=== PATIENT | male | born 1950 | race Caucasian/White ===

== ENCOUNTER → 2024-02-14 09:17 | Outpatient (REF) | payer MEDICARE, BC, SELFPAY | LOC: RCS 09:17 | PROVIDERS: ATTENDING PHYSICIAN Internal Medicine Cardiovascular Disease; FAMILY PHYSICIAN Family Medicine | DX: I48.91 Unspecified atrial fibrillation (principal) | CPT/HCPCS: 93225; 93226 ==

== ENCOUNTER → 2024-05-01 09:51 | Outpatient (REF) | payer MEDICARE, BC, SELFPAY | LOC: RCS 09:51 | PROVIDERS: ATTENDING PHYSICIAN Internal Medicine Cardiovascular Disease; FAMILY PHYSICIAN Family Medicine | DX: I48.91 Unspecified atrial fibrillation (principal); I34.0 Nonrheumatic mitral (valve) insufficiency; I35.0 Nonrheumatic aortic (valve) stenosis | CPT/HCPCS: 93306 ==

== ENCOUNTER 2024-05-13 06:43 | Day surgery (SDC) | payer MEDICARE, BC, SELFPAY ==
[2024-05-13] VITALS (14 sets, daily range): BP systolic 140–178; BP diastolic 66–93; BMI 22.0
[2024-05-13] MEDS: NSS 1000 IV (08:25)
--- NOTE | 2024-05-13 09:39 | CONSULT.STRU ---
Consultation
-
Date/Time Consultation Requested: 05/13/2024
Date/Time Consultation Performed: 05/13/2024
Requesting Provider: Rigoberto Martins MD
Performing Provider: BRIANA Lin
Reason for Consultation: /TAVR
Patient History
Physicians
Family Physician: Herbie Rawls MD
Outpatient Health Insurance Agent: Caesar Nazario MD
Primary Health Insurance Agent: Caesar Nazario MD
History of Present Illness
Mr. Sauceda is a very pleasant 74 yom that presents with severe symptomatic aortic stenosis associated with decrease in activity. His echocardiogram from 05/01/2024 is notable for EF 60-65%, AV P/M 88/50, JUANPABLO 1.1, pk lolita 4.7, moderate AI, moderate MR,
mild TR, PAP 39. Discussed the pathophysiology and treatment options of including TAVR and SAVR. Explained the evaluation process comprising of CT scan, CT surgical consult, dental clearance, and a heart team discussion. TAVR booklet, contact
information, appointments, and prescriptions given to patient. Allowed for and answered questions at bedside.
Past Medical History
Past Medical History: Atrial Fib (C2V:2--on Eliquis), Cancer (Ampullary), Hypothyroidism, Valvular Disease (aortic stenosis, moderate MR) and Other (RLS, osteoarthritis, IBS, DJD, pneumonia)
Past Surgical History
Past Surgical History: Appendectomy, Orthopedic (partial amputation of big toe), Tonsilectomy and Other (Whipple)
Dental History
[facility]
Family History
Mother: Cause of (cancer)
Father: at Age (54) and Cause of (CAD)
Family Medical History: Early CAD and Cancer
Social History
Alcohol: None
Drug: None
Tobacco: Non-Smoker
Personal:
Living: With Spouse
Employment: Retired
Allergies
Allergy/AdvReac Type Severity Reaction Status Date / Time
amoxicillin Allergy diarrhea Verified 05/13/24 08:26
seasonal allergies Allergy nasal Uncoded 05/13/24 08:26
symptoms
Home Medications
�Medication �Instructions �Recorded �Confirmed �Type
psyllium husk 0.52 gram capsule 5 cap PO DAILY 04/19/16 05/13/24 History
(Metamucil)
vitamin B complex 1 tab PO DAILY 04/19/16 05/13/24 History
apixaban 5 mg tablet (Eliquis) 5 mg PO BID 05/13/24 05/13/24 History
atorvastatin 40 mg tablet 40 mg PO QPM 05/13/24 05/13/24 History
cetirizine 10 mg tablet (Zyrtec) 10 mg PO DAILY 05/13/24 05/13/24 History
ferrous fumarate-ascorbic 1 tab PO QNOON 05/13/24 05/13/24 History
acid-ascorbate sod 65 mg iron-125
mg tablet
gabapentin 300 mg tablet,extended 300 mg PO QHS 05/13/24 05/13/24 History
release 24 hr
levothyroxine 200 mcg tablet 200 mcg PO DAILY 05/13/24 05/13/24 History
(Synthroid)
melatonin 5 mg tablet 5 mg PO HSPRN PRN sleep 05/13/24 05/13/24 History
multivitamin 1 tab PO QPM 05/13/24 05/13/24 History
pantoprazole 40 mg tablet,delayed 40 mg PO DAILY 05/13/24 05/13/24 History
release
STS%
STS %: 1.25
Review of Systems
-
History Source: Patient
General: Reports Fatigue
HEENT: Reports No Symptoms
Respiratory: Reports SAWYER
Cardiac: Reports No Symptoms
Abdomen/GI: Reports No Symptoms
: Reports No Symptoms
Musculoskeletal: Reports No Symptoms
Skin: Reports No Symptoms
Neurological: Reports No Symptoms
Vascular: Reports No Symptoms
Physical Exam
Vital Signs
Temp 97.8 F 05/13/24 07:57
Temp route: Oral 05/13/24 07:57
Pulse 40 05/13/24 07:57
Resp Rate 16 05/13/24 07:57
Blood pressure 175/83 05/13/24 07:57
Blood pressure extremity used: Left upper arm 05/13/24 07:57
Position: Lying 05/13/24 07:57
SaO2 98 05/13/24 07:57
Oxygen Mode of Delivery Room air 05/13/24 07:57
Can the patient verbally communicate their pain? Yes 05/13/24 07:57
Actual Weight 83.9 kg 05/13/24 07:56
Body Mass Index (BMI) 22.0 05/13/24 07:56
Labs
05/10/2024
HH: 12.4/36.6
Plt: 136K
BUN/Creatinine: 12/0.73
GFR>60
Albumin 4.3
Diagnostic Studies
Echocardiogram 05/01/2024:
CONCLUSIONS
Normal biventricular size and systolic function without regional wall motion
abnormality. Estimated LVEF 60-65%.
Moderate mitral regurgitation.
Severe aortic stenosis. The peak gradient across the valve is 88 mmHg with a
mean of 50 mmHg. Using a LVOT diameter of 2.2 cm, the calculated JUANPABLO is 1.1 cm
sq. Mean gradient and visual appearance of valve are consistent with severe
stenosis.
Moderate aortic regurgitation.
Enlarged right ventricular size. Normal right ventricular systolic function.
Mildly elevated PASP.
Ectatic proxmal ascending aorta: 3.9 cm.
Cardiac Catheterization 05/13/2024:
CONCLUSIONS
1:�Systemic hypertension
2:�No significant CAD
3. Known severe aortic stenosis noninvasively evaluated
Exam
General: Well Developed, Well Nourished and No Apparent Distress
HEENT: Normocephalic
Neck: Trachea Midline
Respiratory: Clear
Cardiac: Murmur (IV/ TORSTEN)
GI: Soft and Non Tender
Rectal: Deferred by Provider
Skin: Warm
Neuro: Awake, Alert and Oriented
Psych: Calm
Assessment / Plan
-
Aortic Stenosis
Continue TAVR evaluation
Trend creatinine after contrast (Rx given)
TAVR CT scan (05/28)
CT surgical consult ([facility] 06/03)
Frailty testing and KCCQ12 at consult
Will hold Eliquis x [address] and place on aspirin while Eliquis held. Will d/c aspirin when Eliquis resumed
Dental clearance
Heart team discussion
Data Reviewed
-
EKG: Tracing Personally Visualized and interpreted (Afib)
Cardiac/Vascular Sonographer: Report Reviewed by me and Discussed with Physician
Echo: Report Reviewed by me and Discussed with Physician
Labs: Labs Reviewed by me
Old Records: Reviewed (Dr. Nazario's office visit)
Total Time Spent with Patient (in minutes): 45
--- NOTE | 2024-05-13 09:39 | ITS.CL.CATH ---
Office System Analyst - Catheterization
Cardiac Catheterization
Procedure Report:
CARDIAC CATHETERIZATION REPORT
Date of Procedure: 05/13/2024
Referring: Caesar Nazario MD
Indication: Symptomatic severe aortic stenosis
�
HEMODYNAMIC DATA
AO: 162/68
LV: Not done
�
LEFT VENTRICULOGRAPHY: Not done
�
CORONARY ANGIOGRAPHY
Dominance: Right
Left Main: Normal
LAD: Trivial luminal irregularities in a mildly calcified vessel
Circumflex: Mild luminal irregularities
RCA: Dominant moderately calcified vessel with mild luminal irregularities
�
Closure Device: None-the procedure was performed via the right radial artery. The Fabiano's test was normal prior to the procedure.
�
Radiation (mGy): 232
DAP (cm2.Gy): 26.2
Fluoroscopy time: 3.5 minutes
�
CONCLUSIONS
1:�Systemic hypertension
2:�No significant CAD
3. Known severe aortic stenosis noninvasively evaluated
�
�
Copy to: Caesar Nazario MD, Quintero MD
�
Rigoberto Martins MD, [facility], [facility]
== END 2024-05-13 12:30 | disposition home or self-care (01) ==
LOC: CATH 06:43
PROVIDERS: ATTENDING PHYSICIAN Internal Medicine Cardiovascular Disease; FAMILY PHYSICIAN Family Medicine; OTHER PHYSICIAN Internal Medicine Cardiovascular Disease
DX: I08.0 Rheumatic disorders of both mitral and aortic valves (principal); I25.10 Atherosclerotic heart disease of native coronary artery without angina pectoris; I25.84 Coronary atherosclerosis due to calcified coronary lesion; I10 Essential (primary) hypertension; E03.9 Hypothyroidism, unspecified; Z90.49 Acquired absence of other specified parts of digestive tract; G25.81 Restless legs syndrome; K58.9 Irritable bowel syndrome, unspecified; I48.91 Unspecified atrial fibrillation; M19.90 Unspecified osteoarthritis, unspecified site; Z87.01 Personal history of pneumonia (recurrent); Z82.49 Family history of ischemic heart disease and other diseases of the circulatory system; Z79.01 Long term (current) use of anticoagulants; Z79.899 Other long term (current) drug therapy; Z79.890 Hormone replacement therapy
CPT/HCPCS: 93454; C1894; Q9967

== ENCOUNTER → 2024-05-28 09:05 | Outpatient (REF) | payer MEDICARE, BC, SELFPAY | LOC: RAD 09:05 | PROVIDERS: ATTENDING PHYSICIAN Nurse Practitioner Acute Care; FAMILY PHYSICIAN Family Medicine; OTHER PHYSICIAN Specialist | DX: I35.0 Nonrheumatic aortic (valve) stenosis (principal) | CPT/HCPCS: 74174; 75572; Q9967 ==

== ENCOUNTER → 2024-06-10 06:50 | Day surgery (SDC) | payer MEDICARE, BC, SELFPAY | LOC: CATH 06:50 | PROVIDERS: ATTENDING PHYSICIAN Internal Medicine Cardiovascular Disease; FAMILY PHYSICIAN Family Medicine; OTHER PHYSICIAN Internal Medicine Cardiovascular Disease | DX: I08.3 Combined rheumatic disorders of mitral, aortic and tricuspid valves (principal); I48.21 Permanent atrial fibrillation; Z79.01 Long term (current) use of anticoagulants; E78.2 Mixed hyperlipidemia; E03.9 Hypothyroidism, unspecified | CPT/HCPCS: 93312; 93320; 93325 ==

== ENCOUNTER 2024-06-26 05:29 | Inpatient (IN) | payer MEDICARE, BC, SELFPAY ==
[2024-06-18 08:49] VITALS: BMI 23.2
[2024-06-18 09:27] LABS: % Basophils 0.6 % (0-2); % Eosinophils 2.2 % (0-6); % Immature Granulocytes 0.2 % (0-0.5); % Lymphocytes 37.3 % (20.5-51.1); % Monocytes 10.6 % (1.7-9.3); % Neutrophils 49.1 % (42.2-75.2); Absolute Eosinophils 0.1 10^3/uL (0-0.7); Absolute Lymphocytes 1.9 10^3/uL (1.2-3.4); Absolute Monocytes 0.5 10^3/uL (0.1-0.6); Absolute Neutrophils 2.5 10^3/uL (1.4-6.5); Hematocrit 36.6 % (39.0-52.0); Hemoglobin 12.4 g/dL (13.0-18.0); Mean Corp Hgb Conc. 33.9 g/dL (33.0-37.0); Mean Corpuscular Hgb 31.7 pg (27.0-31.0); Mean Corpuscular Volume 93.6 fL (80.0-94.0); Mean Platelet Volume 10.8 fL (7.4-10.4); Nucleated Red Blood Cells % 0 % (-); Platelet Count 115 10^3/uL (130-400); Red Blood Cell Count 3.91 10^6/uL (4.70-6.10)
[2024-06-18 09:36] LABS: INR 1.37
[2024-06-18 09:37] LABS: APTT 34.4 Sec (23.4-35.0)
[2024-06-18 09:40] LABS: Urine Albumin Negative (Neg - Trace); Urine Bilirubin Negative (Negative); Urine Character Clear (Clear); Urine Color Yellow; Urine Glucose Negative (Negative); Urine Ketone Negative (Negative); Urine Leukocyte Negative (Negative); Urine Nitrite Negative (Negative); Urine Occult Blood Negative (Negative); Urine Urobilinogen Negative (Neg - 1+)
[2024-06-18 10:03] LABS: NT-proBNP 1880 pg/ml
[2024-06-18 10:28] LABS: ALT (SGPT) 37 U/L (0-50); AST (SGOT) 42 U/L (17-59); Alkaline Phosphatase 89 U/L (38-126); Blood Urea Nitrogen 16 mg/dl (9-20); Calcium 9.4 mg/dl (8.4-10.2); Carbon Dioxide 28 mmol/L (22-30); Chloride 103 mmol/L (98-107); Direct Bilirubin 0.2 mg/dl (0.0-0.4); Estimated Creatinine Clearance 112 ml/min; Glucose 110 mg/dl (70-99); Potassium 4.3 mmol/L (3.5-5.1); Sodium 143 mmol/L (135-145); Total Bilirubin 1.6 mg/dl (0.2-1.3); eGFR > 60.00
[2024-06-18 10:43] LABS: Albumin 4.5 g/dl (3.5-5.0); Glycohemoglobin (HgbA1c) 5.9 % (4.0-5.6); Total Protein 7.3 g/dl (6.3-8.2)
--- NOTE | 2024-06-18 10:47 | CM ---
Chart reviewed. Met with the patient and his in PAT. Reviewed preoperative and postoperative instructions, along with showering guidelines. Gave patient 2 soaps. Patient is independent of ADLS, lives with his in a 2 STH, 1 ROLANDO, 0 DME.
Patient is agreeable to a home visit by CT Transitional RN. Plan is for the patient to return home with CT Transitional RN.
[2024-06-26] VITALS (35 sets, daily range): BP systolic 141–185; BP diastolic 51–96; BMI 22.8
--- NOTE | 2024-06-26 06:30 | PTCARENOTE ---
Pt rec'd as direct admit for TAVR. pt clipped and washed with chg wipes. 20g placed in RFA, ABO sent. Adm hx taken and recorded. spouse at bedside. Pt seen by Dr Ramsey at bedside
--- NOTE | 2024-06-26 06:32 | W.CVOR.SURPR ---
CVOR Surgeon Immed Pre Op
-
I have examined this patient prior to performance of the scheduled procedure.
The patient's condition is unchanged from the time of the dictated/written History and
Physical and the patient is able to undergo the scheduled procedure.
TF TAVR
Full Rescue
[2024-06-26] MEDS: ANCEF 10 IV (07:08)
[2024-06-26 08:00] LABS: ACT-LR - POC 289 Seconds (116-155)
[2024-06-26 08:17] LABS: ACT-LR - POC 292 Seconds (116-155)
--- NOTE | 2024-06-26 08:30 | W.PN.UPDATE ---
Update Note
Progress Note Update
Reviewed Mr. Sauceda with the heart team in the preTAVR SDM meeting and confirmed a 29 mm S3 via (R) TF access. Patient will resume Eliquis and d/c aspirin once Eliquis restarted post TAVR. LVEDP 20mmHg. # 29 mm S3 (serial# [id number]) successfully
deployed via right transfemoral access. Post implant MG 4mmHg.
--- NOTE | 2024-06-26 08:36 | ITS.CL.TAVR ---
Retoucher Photoengraving - TAVR Report
TAVR PRocedure
Procedure Report:
TRANSCATHETER AORTIC VALVE REPLACEMENT REPORT
Date: 06/26/2024
Referring physician: Caesar Nazario M.D.
Preop diagnosis: Severe aortic valve stenosis.
Postop diagnosis: Severe aortic valve stenosis.
Procedure: Transcatheter aortic valve replacement (TAVR) using a # 29 Damon BRYANT S3 Ultra.
Operators: Cholo Sutton DO, Anthony Tran, M.D.
Findings: Severely calcified and stenotic aortic valve.
Anesthesia: Conscious sedation was provided by the anesthesia staff.
Estimated blood loss: Negligible.
Complications: None.
Condition: Stable
Procedure:
The patient was brought to the cardiac cathode ray tube salvage processor after consent and was prepped and draped in standard sterile fashion. Conscious sedation was provided by the anesthesia staff. After a 'Time Out,' bilateral common femoral arteries and the left
common vein were access using a modified Seldinger technique with a micropuncture kit under ultrasound guidance. A 6 Tunisian sheath was placed in the left femoral vein. Angiography performed through the micropuncture sheath confirmed satisfactory
arterial placement in the left common femoral artery. The micropuncture sheath was replaced with a 6Fr sheath in the left PRESCHOOL DISABILITY TEACHER. Angiography through the micropuncture kit confirmed satisfactory arterial placement in the right common femoral artery.
The right PRESCHOOL DISABILITY TEACHER was dilated with an 8FR dilator and preclosed with two Perc-Close devices. An 8Fr sheath was placed in the RCFA. A temporary pacing wire was advanced through the left femoral vein and into the right ventricle. The pacemaker
demonstrated good capture and was set to back up. A 5Fr pigtail catheter was advanced through the left femoral sheath and seated in the right coronary cusp. Angiography confirmed co-planar angles.
An AL-1 catheter was advanced through the 8Fr sheath, the J wire was exchanged for an Amplatz Superstiff wire and the catheter and the 8 Fr sheath was removed. The 16 Fr Damon E-sheath was inserted over the wire and into the descending aorta.
Heparin 7000 units was given. The BRYANT S3 was prepared on the back table. Orientation was confirmed by both physicians. The AL-1 catheter was re-advanced through the E-sheath to the level of the ascending aorta. The Superstiff wire was removed
and a soft tip straight wire was advanced through the AL-1. The straight tip wire was used to cross the aortic valve and the catheter was advanced into the left ventricle. The straight wire was removed and an Amplatz Extrastiff wire with curved
proximal end was advanced through the catheter and into the left ventricle. The wire was seated in the apex and the catheter was removed. ACT was checked and confirmed to be > 250 seconds.
The valve was advanced over the Extrastiff wire and into the descending aorta. The balloon was withdrawn and the valve was mounted on the balloon. The valve was advanced over the aortic arch and into the aortic valve annulus. The pusher device
was withdrawn to allow for balloon expansion. Low volume aortography confirmed good position of the valve. The valve was deployed during rapid ventricular pacing. Echocardiography and aortography confirmed a good result with trace aortic valve
insufficiency and a 4 mmHg mean gradient. The valve deployment system was removed. The Damon E sheath was then removed and hemostasis obtained with the two Perc-Close sutures. Final angiography demonstrated no evidence of ileofemoral
dissection/perforation and good runoff below the common femoral artery. The pacemaker and the pigtail catheter were removed. The left femoral artery sheath was removed using a 6 Tunisian Angio-Seal. The left femoral venous sheath was removed and
manual pressure was applied with excellent hemostasis.
Radiation
Dose (mGy): 314.43
DAP (cm2.Gy): 33.6095
Fluoroscopy time (minutes): 7.9
TAVR Echo Gradient (mmHg): 4
LV (s/x, mmHg): 157/21
TAVR Cath Gradient (mmHg): Not obtained.
Conclusions:
1. Successful placement of #29 Bryant S3 Ultra aortic valve via right transfemoral approach with no acute complications.
2. Atrial fibrillation with underlying bradycardia (not on rate control), unchanged after TAVR placement. The patient did have several paced beats. The decision was made to maintain temporary pacemaker position while the patient is recovering so
that we can better assess for permanent pacemaker needs.
Cholo Sutton, DO, FACC, FACP
Copy to: Caesar Nazario M.D., Herbie Rawls M.D.
--- NOTE | 2024-06-26 09:00 | W.PN.CT.SURG ---
CT Surgery Operative Note
-
OPERATIVE REPORT
Preoperative Diagnosis: Severe aortic valve stenosis, symptomatic
Postoperative Diagnosis: Same
Procedure(s) Performed: Right trans femoral TAVR with a 29 mm Damon TAVR valve
Date of Procedure: 06/26/2024
Comorbidities:
1. Severe aortic stenosis, symptomatic
2. At least moderate mitral valve insufficiency, functional
3. History of pancreatic cancer status post Whipple procedure
4. Hypothyroidism
5. Poly neuropathy
6. Osteoarthritis
Cardiac Surgeon: Gerardo Ramsey MD, MS
Pockets And Pieces Necktie Operator: Cholo Sutton MD
Anesthesia: Conscious Sedation and Local Analgesia
EBL: 50cc
Products: none
Implant: 29 mm Damon CYRUS ultra valve, nominal pressure, SN: [id number]
Indication(s) for Procedures: 74-year-old male with symptomatic severe aortic stenosis. CT-TAVR protocol revealed acceptable anatomy for TAVR access and implantation. Multidisciplinary discussion between interventional cardiology, and general
cardiology with overall consensus to pursue transcatheter aortic valve intervention. He will also likely need to have serial echo monitoring for his mitral valve insufficiency which could be functional in origin. This to be evaluated later for
possible Janell.
Start time: 0734hrs
Deployment time: 802hrs
End time: 0821hrs
Radiation Dose (mGy): 314.43
DAP (cm2.Gy): 33.6095
Fluoroscopy time (minutes): 7.9
Contrast volume (ml): 86
TAVR gradient (mmHg): 4mmHg
Heparin Dose: 7000units
Protamine Dose: 30mg
Final Valve Positionin/10
Findings: Preoperative LVEF was 60% and was 60% following TAVR without inotropic support. Function was overall normal without regional wall motion abnormalities or dyskinesia. The aortic valve was well seated only trace detectable PVL and mean
gradient across the new valve was 4 mmHg. he started off with a sinus bradycardic rhythm with known atrial fibrillation. After the TAVR procedure, he regained a slow junctional/intermittent sinus bradycardic rhythm. The temporary pacing wire was
left in place in the event that he would require additional pacing and possibly a pacemaker as he was high risk. There was successful placement of 29 mm nominal TAVR valve without acute complications.
Access:
1. Device -right common femoral artery, perclose x 2
2. Pigtail -left common femoral artery [+ 6Fr angioseal]
3. Transvenous Pacer -left common femoral vein
Description of Procedure: The patient was taken to the labor conciliator. Their identity and procedure to be performed were verified and they were positioned supine on the labor conciliator table. Induction via conscious sedation. The patient was then prepped and
draped from chin to thigh in a sterile fashion. A preoperative time-out was performed with all members of the team present. Arterial and venous access was performed using fluoroscopy and ultrasound guidance with micropuncture and Seldinger
technique. Two perclose devices were used on the device side followed by access to the aorta with a stiff wire to facilitate E-sheath placement. Heparin was given. A stiff straight wire and AL-1 catheter was used to cross the aortic valve. An LVEDP
was measured here and found to be 20 mmHg. The stiff wire was exchanged for an extra stiff coiled tip wire. The valve was prepped and mounted on to the device carrier. An ACT of >250 was achieved. We verified x 3 that the valve was mounted in the
correct orientation with the skirt of the valve directed toward the tip of the device carrier. We advanced the device into the descending thoracic aorta where the valve was them mounted onto the balloon under fluoroscopy. The device was flexed and
advanced over the arch into the root and positioned across the aortic valve. Contrast fluoroscopy was used to visualize the prosthesis across the valve and to guide positioning. A pigtail catheter in the RCC as used as a guide. We aimed to have the
bottom of the device marker at the annular hinge point. The device sheath was pulled back. We performed a quick pre-deployment time out. The pacer was turned on and had capture. Blood pressure fell accordingly, angiography was done to verify the
intended final placement and the valve was deployed with 5 seconds of rapid pacing to nominal volume. The balloon was deflated and the pacer was turned off. We had recovery of vitals. The device carrier was unflexed and positioned back in the
descending thoracic aorta. A transthoracic echocardiogram was performed. The device was removed from the E-Sheath maintaining wire access followed by removal of the E-sheath as we cinched down the perclose devices. There was acceptable hemostasis.
The pigtail was withdrawn into the descending/abdominal and completion aortogram with runoff run-off angiography was performed. There was no stenosis or dissection of bilateral iliofemoral systems. There was acceptable hemostasis of bilateral groins
and manual pressure was held following wire removal. Low dose protamine was administered after checking another ACT.
All instrument, sponge, and needle counts were confirmed to be correct x 2 at the end of the operation. The patient was transferred to the cardiac intensive care unit in stable condition.
I, Dr. Gerardo Ramsey, was present, scrubbed for, and performed all critical elements of this procedure.
Gerardo Ramsey MD
Cardiothoracic Surgeon
[facility]
This operative dictation was created using the Audaster dictation system. Please excuse any grammatical, typographical, or 'sound alike' errors
--- NOTE | 2024-06-26 10:00 | PTCARENOTE ---
Patient received post operative. He is AO x3, neurologically intact. A-fib in the 30's, V-pacing. Left sheath intact in place with a transvenous pacing at at 30 BPM to KVO. Doppler pulse right pedal pulse. B/L groin are dry and soft. POX 100 on room
air, BP 159/77. Urinal emptied for 200 cc of yellow urine. HOB flat, denies pain, sleeping, at bedside
--- NOTE | 2024-06-26 11:04 | CM ---
Chart reviewed. Patient is in the OR today. Patient is independent of ADLS, lives with his in a 2 STH, 1st floor set up, 1 ROLANDO, 0 DME. Plan is for the patient to return home with CT Transitional RN. CM to follow
[2024-06-26] MEDS: SYNTHROID 200 MCG PO (11:08)
--- NOTE | 2024-06-26 11:50 | PTCARENOTE ---
oral temp 94.5, Flori chowdhury
--- NOTE | 2024-06-26 13:17 | PTCARENOTE ---
Oral temp 97.7. Flori huger turned off. Report called to the fence laborer. Patient NPO. A-Fib HR 35-40
[2024-06-26] MEDS: ANCEF 5 IV ×2 (15:45→21:15)
--- NOTE | 2024-06-26 16:47 | ITS.CL.PACE ---
[facility]er [facility] Presser - Pacemaker Implant
Pacemaker Implant
Procedure Report:
Leadless Pacemaker (Micra) Implantation:
Mr. Sauceda is a very pleasant 74 yr old gentleman with permanent atrial fibrillation and severe aortic stenosis who underwent TAVR earlier today with slow ventricular response and required pacing with temporary wire. �Patient is recommended for
pacemaker implantation.� Given patient's permanent atrial fibrillation, a single-chamber pacemaker is recommended.� We discussed and decided to proceed with leadless pacemaker with the possibility of regular pacemaker if leadless pacemaker is not
feasible.
Indications: Severe symptomatic bradycardia and intermittent AV block with permanent atrial fibrillation
Date of the Procedure:
06/25/2024
Pre-Operative Diagnosis: Severe bradycardia with intermittent AV block.
Post-Operative Diagnosis: Severe bradycardia with intermittent AV block.
Procedure Performed: Leadless pacemaker placement
Performing Physician:
Chica Hsu MD
Anesthesia:
See anesthesia records
Pre-operative antibiotics:
Ancef 2gm IV
Detailed Description of the Procedure:
Written informed consent was obtained from the patient after a full explanation of the risks and benefits of the procedure including the risks of sedation and anesthesia.
The patient was brought to the electrophysiology laboratory in stable condition in fasting state. Continuous electrocardiographic and hemodynamic monitoring was initiated.
The initial rhythm was atrial fibrillation with slow junctional escape versus slow ventricular response and temporary pacing wire in place.
The procedure site was meticulously prepared with surgical scrub and allowed to dry with no pooling. Sterile draping was applied to cover the procedure site. The image intensifier was draped with sterile bag and positioned over the patient.
After infusion of local anesthetic, vascular access was obtained under ultrasound guidance and sheaths were placed over guide wire as detailed below.
An 8Fr sheath in right femoral vein was placed and Amplatz Guidewire 0.035 was placed in the superior vena cava. The venous access was gradually dilated from 14-24 Ivorian dilators. Then the 27 Fr Micra outer sheath was successfully and carefully
advanced to the RA.
Leadless Pacemaker (Micra) implantation:
The delivery system of the Micra was prepped with removal of all air underwater and was advanced into the sheath to the RA with continuous saline irrigation. The sheath was pulled back to the IVC and the delivery sheath was advanced into the RV
cavity. The delivery system as placed against the ventricular septum using SALAS and GREENLANDIC fluoroscopic views and the septal approximation was confirmed with contrast injection. Once adequate location was confirmed, the locked sutures were unlocked and
the Micra was slowly advanced pulling back the delivery sheath releasing the anchoring hooks. The Micra was attached successfully to the RV septum. The PM was tested and patient had extremely elevated threshold with normal impedance.
Decision was made to recapture and reposition. Multiple locations in the RV septum were tested and all were noted to have high threshold. Finally a more apical inferior septum had excellent thresholds and were accepted. Adequate sensing and
threshold noted.
Next, the tug test was done with the pulling the attached suture under fluoroscopic guidance with the three anchors securely embedded and showed movement and widening of the anchors with pulling them. The PPM again was tested showing stable
thresholds and excellent sensing.
The one side of the suture was cut and the other side was gradually and carefully pulled until free. At that point, patient lost capture and was again noted to have slow escape rhythm. �The leadless pacemaker was emerged and was noted to have
dislodged with still in the RV septum anchored using one of the anchors.
Decision was made to snare and remove the leadless pacemaker.
Extraction of the leadless Pacemaker:
An Agilis sheath was placed in the right femoral vein over the guidewire and the 27 Ivorian micra sheath. A gooseneck snare was placed in the right atrium. Using the Agilis sheath the snare was placed in the RV and the leadless pacemaker was
captured. The pacemaker was captured and retrieved from the septum.� Both the snare and the leadless pacemaker was pulled out of the RV and into the Micra sheath.
Both the Agilis sheath and the 27 Ivorian micro sheath was pulled out from the right femoral vein.
Manual pressure was applied and [id number] suture was placed around the entrance of 27 Ivorian sheath.
Case was discussed again with the patient family and decision was made to proceed with left bundle branch pacing pacemaker.
Left Bundle Branch pacing single chamber Permanent Pacemaker Placement
The left shoulder site was prepped properly for the pacemaker implantation. A timeout was performed immediately before the procedure. The left chest was prepped from the nipple to the angle of the jaw with chlorhexidine, and draped following sterile
technique in usual routine.�
The left infraclavicular region was prepped and draped in the usual sterile fashion. Local anesthesia was administered subcutaneously using 1% lidocaine / Bupivacaine. The left cephalic vein cutdown was done and guide wires were advanced to the
inferior vena cava (IVC) under flouro guidance.
A subcutaneous pocket was created with blunt dissection and use of electrocautery. Hemostasis was excellent.
Attention then was turned to the left bundle branch pacing lead. The guide wire was advanced to the RA and was advanced to the RV. The preformed curved long hemostatic peel away HIS sheath was advanced into the RV cavity. A left bundle pacing wire
was advanced into the sheath to the tip with ventricular signals noted with unipolar manner. The sheath with the pacing lead was moved deeper into the RV cavity from the HIS location on the septum at a more inferior and distal to the HIS signals.
Once adequate signals were noted on the electrograms of the pacing lead in the sheath with W pattern signals on the RV septum, the lead was advanced and clockwise turns were done under fluoroscopic guidance. The septum was engaged and the lead was
paced intermittently after every 2-3 turns. The Impedance of the lead was measured that remained stable around 1000 Ohm and the lead was advanced into the septum. The ventricular capture was monitored throughout and the captures gradually changed
from RV pacing to non-selective pacing to LBB pacing with R wave on V1.
With RBBB pattern noted on the pacing lead, it was decided to accept the location as optimal location. The long guiding sheath was cut and removed from the RV without change in lead position, impedance, sensing, or capture. The lead was sutured to
the underlying pectoralis fascia with 0-silk stitches.
Deep subcutaneous tissues were closed with 3 layers of 2-0V loc sutures; and the dermis was reopposed using a running 4-0 V-Loc subcuticular suture. Sponge counts / sharp counts were appropriate.
Procedure End:
The procedure was tolerated well. Aquacel bandaged was applied. A pressure dressing was applied.
Following the completion of the, temporary pacing wire and sheaths were removed without any movement to the permanent pacing lead. The decision was made to also place a �figure of 8� sutures. The sheaths were removed and hemostasis achieved with
manual compression.
Estimated Blood loss:
5 cc
Specimens Removed:
No cultures and no specimens were obtained. No intraoperative pathology was identified.
Urine output:
None
Packs / Drains/ Tubes:
None
Instrument / Sponge Count Correct:
Yes
Flouro time:
27.8min / 97.1 Gycm2
Complications of the Procedure:
None
Condition of Patient at Time of Transfer:
Hemodynamically stable with no neurological or vascular compromise.
Explanted Device Information:
Medtronic Leadless (Micra) pacemaker-
����������� Model #: [id number]; Serial Number: [id number] � implanted and explanted with poor thresholds.
Implanted Device information:
Generator: Medtronic; Model: [id number]; Serial # [id number]
����������� LBB pacing lead: Medtronic; Model: 3830-69; Serial # [id number]
����������������������� Measured data on the RV lead was sensing of 12 mV, impedance of 740 ohms and threshold of 1.5V at 0.4ms
(The RV threshold was 3 V @0.4ms and the LBB threshold is 1.5 V@0.4ms)
Currently pacing at 3.5V to non-selectively capture both RV and LV chambers.
Adrian parameter settings
����������� VVIR 60 bpm. �
Procedure End
Estimated Blood loss:
<5 cc
Total contrast used:
12.5 cc
Specimens Removed:
None.
Implants / Devices:
None
Urine output:
None
Packs / Drains/ Tubes:
None
Instrument / Sponge Count Correct:
Yes
Complications of the Procedure:
None
Condition of Patient at Time of Transfer:
Hemodynamically stable with no neurological or vascular compromise.
Summary:
s/p implantation of MRI compatible Medtronic leadless ventricular pacemaker with subsequent extraction and placement of conduction system pacing permanent pacemaker on the left chest.
--- NOTE | 2024-06-26 17:00 | PTCARENOTE ---
Right figure eight suture removed. Dry dressing applied.
[2024-06-26] MEDS: NON-FORMULARY ITEM 12 CAP PO (18:17)
[2024-06-26] MEDS: LIPITOR 40 MG PO (18:18)
--- NOTE | 2024-06-26 18:30 | PTCARENOTE ---
Patient received from the metallurgy laboratory technician. AO x3, oxygen at 2 liters NC. Left arm immobilizer with pressure dressing. PPM left chest wall covered with a large pressure dressing. Voided 200 cc in urinal. B/L groins a CDI. Right pedal pulse weaker than the
left but palpable now, Verified with Doppler. Portable CXR completed. Dinner ordered, at beside
[2024-06-26] MEDS: APRESOLINE 5 MG IV (19:39)
[2024-06-26] MEDS: ROXICODONE 2.5 MG PO (19:40)
[2024-06-26] MEDS: REGLAN 10 MG IV (20:06)
[2024-06-26] MEDS: NORVASC 5 MG PO (20:06)
[2024-06-26] MEDS: NEURONTIN 300 MG PO (21:15)
[2024-06-26] MEDS: TYLENOL 650 MG PO (21:15)
[2024-06-26] MEDS: NON-FORMULARY ITEM 6 CAP PO (23:55)
[2024-06-27 03:59] VITALS: BP 123/65
[2024-06-27 04:11] VITALS: BMI 23.1
[2024-06-27 04:44] LABS: Hematocrit 34.2 % (39.0-52.0); Hemoglobin 11.7 g/dL (13.0-18.0); Mean Corp Hgb Conc. 34.2 g/dL (33.0-37.0); Mean Corpuscular Hgb 32.6 pg (27.0-31.0); Mean Corpuscular Volume 95.3 fL (80.0-94.0); Red Blood Cell Count 3.59 10^6/uL (4.70-6.10); Red Cell Dist. Width 12.9 % (11.5-14.5)
[2024-06-27 04:54] LABS: Blood Urea Nitrogen 13 mg/dl (9-20); Calcium 8.8 mg/dl (8.4-10.2); Carbon Dioxide 23 mmol/L (22-30); Chloride 104 mmol/L (98-107); Estimated Creatinine Clearance > 125 ml/min; Glucose 196 mg/dl (70-99); Magnesium 1.8 mg/dl (1.6-2.3); Potassium 4.2 mmol/L (3.5-5.1); Sodium 140 mmol/L (135-145); eGFR > 60.00
[2024-06-27 05:14] LABS: Mean Platelet Volume 11.1 fL (7.4-10.4); Platelet Count 82 10^3/uL (130-400)
--- NOTE | 2024-06-27 05:57 | W.PN.CT ---
Today's Communication / Plan
-
-pod #1
-hypertensive 180s last night - gave iv Hydralazine and started Norvasc (not on BP meds at home)
-in a-fib with V-pacing @ 60 overnight
-Eliquis to start 06/27
-Echo
-current meds (Eliquis, Lipitor, Norvasc, Protonix, Feosol, Neurontin, Creon)
-encourage IS, OOB
-possible d/c
Assessment / Plan
-
- Symptomatic severe - s/p Right trans femoral TAVR with a 29 mm Damon TAVR valve on 06/26/24, pod #1
- s/p placement of Medtronic Left Bundle Branch pacing single chamber Permanent Pacemaker on 06/26/[address] Hsu
- Intraop TTE: Preop LVEF was 60% and was 60% following TAVR without inotropic support. Function was overall normal without regional wma or dyskinesia. The aortic valve was well seated only trace detectable PVL and mean gradient across the new valve
was 4 mmHg.
- Permanent a-fib - on Eliquis at home
- At least moderate mitral valve insufficiency, functional
- History of pancreatic cancer status post Whipple procedure 10/29/20
- Hypothyroidism
- Polyneuropathy
- Osteoarthritis
- Restless leg syndrome
- Irritable bowel
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
- Former smoker
Discussed patient care with: Nursing and Care Team
Subjective
-
Date of Service: June 26, 2024
Objective Data
-
Lab Results
06/18/24 08:58
06/18/24 08:58
PT 17.0 Sec (11.4-14.6) H 06/18/24 08:58
INR 1.37 06/18/24 08:58
APTT 34.4 Sec (23.4-35.0) 06/18/24 08:58
Vital Signs
Vital Signs
Temp Pulse Resp BP Pulse Ox
97.7 F 60 16 179/85 100
06/26/24 18:27 06/26/24 20:06 06/26/24 18:27 06/26/24 20:06 06/26/24 18:40
CT Intake/Output/Weight
06/26/24 06/26/24 06/27/24
06:59 18:59 06:59
Intake Total 2900 / 3300 400 / 3300
Output Total 1350 / 1900 550 / 1900
Balance 1550 / 1400 -150 / 1400
SaO2: 100
Physical Exam
-
General: Awake and AOx3
Cardiovascular: Regular rate & rhythm (a-fib with v-pacing), No Murmurs and No Rub
Respiratory: Decreased Breath Sounds
Incision: Other (groins are cdi, soft, nontender, no hematoma b/l)
Extremities: No Edema (R DP and PT by Doppler and L DP palpable 2+)
Data Reviewed
-
Lab Results: Results Reviewed
Medications: Active Meds Reviewed
Chest X-Ray: Report Reviewed and Image Reviewed
ECG: Report Reviewed and Image Reviewed
[2024-06-27] MEDS: ANCEF 5 IV (06:09)
--- NOTE | 2024-06-27 06:16 | PTCARENOTE ---
Pt AAOx3 Vpaced on monitor. figure 8 closure removed, dsg clean and intact. Rt foot pulses on doppler. Ambulates with x1 person assist
[2024-06-27 06:55] VITALS: BP 133/66
[2024-06-27] MEDS: NON-FORMULARY ITEM 8 CAP PO ×2 (07:16→11:57)
[2024-06-27] MEDS: ZYRTEC 10 MG PO (08:22)
[2024-06-27] MEDS: NORVASC 5 MG PO (08:22)
[2024-06-27] MEDS: PROTONIX 40 MG PO (08:22)
[2024-06-27] MEDS: FLUSH (NSS) 2 FLUSH IV (08:23)
--- NOTE | 2024-06-27 09:12 | PTCARENOTE ---
The patient is aaox3, vss, 97% on RA. V-pacing is noted on the monitor. He has no complaints of pain or sob. A heart murmur is noted. His left chest wall dressing is intact. There is some ecchymosis noted toward his left lower dressing area. A left
arm immobilizer is in place. His left groin dressing is c/d/i. His right groin dressing has some scant old marked drainage. There is no drainage extending beyond the marked area. Both groin sites are soft and non-tender. I instructed the patient on
his activity restrictions. His call gonzalez is within reach.
--- NOTE | 2024-06-27 09:50 | PN.CDI ---
CDI
- -
CDI:
Physician Documentation Request
Admit Date: 06/26/24 05:[address] Surgery,
Clinical Indicators:
Patient admitted with severe aortic stenosis; s/p TAVR and permanent pacemaker 06/26.
06/18 BNP (prior to admission):
06/18/24
08:58
Fnz-I-Zcmkcocdkcb Pept 1880
06/26 Echo Report, 'Left ventricular ejection fraction is 60%.'
06/26 Op Report, 'An LVEDP was measured here and found to be 20 mmHg.'
Based on the above, could you clarify in the progress notes, the appropriate diagnosis, if significant, that supports the above abnormalities and additional evaluation, monitoring and/or treatment rendered:
Acute HFpEF
Elevated LVEDP only
Other, please specify
Use of terms such as suspected, likely, concern for, or probable (associated with a specific diagnosis that is being evaluated, monitored, or treated as if it exists) are acceptable and can be coded in the inpatient setting, when documented at the
time of discharge.
Thank you,
Jo Stevenson RN BSN
CDI Specialist
available via tiger text
Please use your independent medical judgment in providing your response.
--- NOTE | 2024-06-27 09:54 | W.PN.CD ---
Today's Communication / Plan
-
-
-
-
No objection to home today
Echo is pendning
-
-
Impression / Plan
-
S/p TAVR 06/26/2024 for severe symptomatic
- Doing well
- Echo pending
Pacer, implanted 06/26/2024
- Pacer and groin sites are very good
Perm AFib, with chronic slow V rates (now s/p pacer)
Moderate MR by DEANNA on 06/10/2024
- Will follow
Subjective:
Feels good.
Physical Exam
Vital Signs/Labs
Vital Signs
Temp Pulse Resp BP Pulse Ox
97.7 F 60 18 133/66 97
06/27/24 06:55 06/27/24 06:55 06/27/24 06:55 06/27/24 06:55 06/27/24 06:55
06/26/24 06/27/24 06/28/24
06:59 06:59 06:59
Actual Weight 84.8 kg 86.1 kg
06/27/24 04:05
06/27/24 04:05
PT 17.0 Sec (11.4-14.6) H 06/18/24 08:58
INR 1.37 06/18/24 08:58
APTT 34.4 Sec (23.4-35.0) 06/18/24 08:58
Magnesium 1.8 mg/dl (1.6-2.3) 06/27/24 04:05
06/18/24
08:58
Zqp-N-Xcurfhdgqvs Pept 188
Physical Exam
Constitutional: No acute distress
EENT: Anicteric
Cardiovascular: Rhythm & rate is regular, Pedal edema is absent and Systolic murmur present
Respiratory: Respiratory effort normal and Lungs clear to auscul.
GI: Soft and Distention absent
Neuro/Psych: AO x 3 and Motor deficits absent
Other: Cath Site (bilat groin sites look very good) and Cardiac Device Site (looks great)
Data Reviewed
-
Date of Service: June 27, 2024
EKG: Tracing Personally Visualized and interpreted (good pacer morphology. Tele review good)
X-Ray/CT/US/MRI/NUC/PET: Image Personally Visualized and interpreted (pacer lead in good position, no pneumo seen)
--- NOTE | 2024-06-27 10:21 | W.PN.UPDATE ---
Update Note
Progress Note Update
CDI query:
Elevated LVEDP only
--- NOTE | 2024-06-27 10:35 | CM ---
Chart reviewed. Patient is independent of ADLS, lives with his in a [address], 2 [address], 0 DME. Plan is for the patient to return home with CT Transitional RN.
--- NOTE | 2024-06-27 11:06 | W.DCSUMMARY ---
Discharge Summary
Discharge Data
Date of Admission: 06/26/24
Date of Discharge: 06/27/24
Total time spent discharging patient (in min): 31
-
Pending Results: No
Hospital Course
Primary care physician:
Dr. Herbie Mendes
Outpatient adviser sales:
Dr. Caesar Nazario
Inpatient consultants:
CBC
Procedures:
1. Right trans femoral TAVR with a 29 mm Damon TAVR valve
Primary Diagnosis:
1. Severe aortic valve stenosis, symptomatic
Secondary Diagnoses:
1. Moderate mitral valve insufficiency, functional
2. History of pancreatic cancer status post Whipple procedure
3. Hypothyroidism
4. Poly neuropathy
5. Osteoarthritis
HPI: 74-year-old male with symptomatic severe aortic stenosis. CT-TAVR protocol revealed acceptable anatomy for TAVR access and implantation. Multidisciplinary discussion between interventional cardiology, and general cardiology with overall
consensus to pursue transcatheter aortic valve intervention. He will also likely need to have serial echo monitoring for his mitral valve insufficiency which could be functional in origin. This to be evaluated later for possible Janell. However, he
presented electively on 06/26 for a TAVR.
Hospital course: Patient was electively admitted on 06/26 for a transcatheter aortic valve replacement with Dr. Ramsey. There were no intra-op events and patient went to sleep lab technician recovery. B/l groins remain stable. His heart rhythm was in the slow 30s
therefore a transvenous wire remained in place. He was sent to IVU for the remainder of their recovery. He remained bradycardic therefore the decision was made for him to get a permanent pacemaker placed. He was also noted to be hypertensive with
SBP in the 190s so he was started on norvasc. On 06/27, POD #1, B/L groins remained stable. Repeat TTE showed a peak/mean gradient of 39/20mmHg. He was deemed stable for discharge.
Home medication changes:
see below
Discharge Plan
-
Patient Disposition: Home (Routine Discharge)
Discharge Diagnosis/Procedures: TAVR, pacemaker implant
Condition: Good
Diet: Low Cholesterol
Activity: As tolerated
Driving Restrictions: No driving for 1 week
Bathing Restrictions: OK to Shower
Others Tests: Follow Up Echocardiogram: 07/28/2024 at 2:00pm at [facility]
Other Services: Cardiac Rehab
Wound Care: Please do not apply lotions, creams or powders to groin areas. Please monitor for increased pain, swelling, redness or drainage. Notify your doctor if any occur.
Specialty Instructions: Weigh Daily- Call MD for wt gain/loss 3 lbs overnight/5 lbs in 1 week
Instructions: Aortic Valve Replacement, Transcatheter (DC)
Stand Alone Forms: DC Instructions- Cath/EP Lab, DC Inst - Implanted Device
Referrals:
CT Transitional Care Nurse [Outside] (The Cardiothoracic Transitional Care Nurse will call you to set up a visit in 1-2 days.)
Radha Sharma NP [Specified Professional Personl] - 07/22/24 2:40 pm
Herbie Rawls MD [Family Provider] -
Additional Discharge Medication Instructions: PLEASE RESUME YOUR ELIQUIS TOMORROW MORNING
Prescriptions:
New
acetaminophen 325 mg Tablet
650 mg PO Q4HPRN PRN (Reason: PAYTON, mild pain, or fever >101F) Qty: 0 0RF
amlodipine 5 mg Tablet
5 mg PO DAILY Qty: 30 0RF
Continued
vitamin B complex 1 TAB tablet
1 tab PO DAILY
atorvastatin 40 mg Tablet
40 mg PO QPM
cetirizine [Zyrtec] 10 mg Tablet
10 mg PO DAILY
pantoprazole 40 mg Tablet,Delayed Release (Dr/Ec)
40 mg PO DAILY
levothyroxine [Synthroid] 200 mcg Tablet
200 mcg PO DAILY
melatonin 5 mg Tablet
5 mg PO HSPRN PRN (Reason: sleep)
gabapentin 300 mg Tablet Extended Release 24 Hr
300 mg PO QHS
iron fum-vit C-ascorbate sod 65 mg iron- 125 mg Tablet
1 tab PO QNOON
Eliquis 5 mg Tablet
5 mg PO BID
psyllium husk 0.52 gram Capsule
2.6 g PO DAILY
Rx Instructions:
5 CAPS daily
Creon 24,000-76,000 -120,000 unit Capsule,Delayed Release(Dr/Ec)
1 cap PO DIRECTED
Rx Instructions:
8 caps w/ breakfast;
8 caps w/ lunch;
12 caps w/ dinner;
4-5 caps w/ snack;
Discharge Orders:
Discharge Patient (As Directed); Ordered 06/27/24
Ordered By: Eunice Lincoln
Care Plan Goals
Care Plan Goals:
Problem: Readiness for enhanced knowledge related to diagnosis and treatment plan
Goal: Understand your diagnosis and treatment plan needs, including medications if applicable.
Instructions: Know your diagnosis, underlying causes and treatment plan options, including medications if applicable. Consult with your health care team to learn about your diagnosis and treatment plan, including medications if applicable.
Discharge Date and Time
Print Language: JORDANIAN
[2024-06-27 11:15] VITALS: BP 148/68
[2024-06-27 11:29] VITALS: BP 154/67
[2024-06-27 11:37] VITALS: BP 159/77
[2024-06-27 11:46] VITALS: BP 154/67; BP 159/77; PULSE 63; O2SAT 100
== END 2024-06-27 12:33 | disposition home or self-care (01) | DRG 267 ==
LOC: IVU 05:29
PROVIDERS: Clinical Nurse Specialist Acute Care; Internal Medicine Cardiovascular Disease; ADMITTING PHYSICIAN Thoracic Surgery (Cardiothoracic Vascular Surgery); ATTENDING PHYSICIAN Thoracic Surgery (Cardiothoracic Vascular Surgery); FAMILY PHYSICIAN Family Medicine
PROC: 0JH605Z Insertion of Pacemaker, Single Chamber Rate Responsive into Chest Subcutaneous Tissue and Fascia, Open Approach (ICD-10-PCS; 2024-06-26)
PROC: 02HK3JZ Insertion of Pacemaker Lead into Right Ventricle, Percutaneous Approach (ICD-10-PCS; 2024-06-26)
PROC: 02RF38Z Replacement of Aortic Valve with Zooplastic Tissue, Percutaneous Approach (ICD-10-PCS; 2024-06-26)
DX: I35.0 Nonrheumatic aortic (valve) stenosis (principal); Z00.6 Encounter for examination for normal comparison and control in clinical research program; I48.21 Permanent atrial fibrillation; I34.0 Nonrheumatic mitral (valve) insufficiency; E03.9 Hypothyroidism, unspecified; G62.9 Polyneuropathy, unspecified; M19.90 Unspecified osteoarthritis, unspecified site; R00.1 Bradycardia, unspecified; I44.30 Unspecified atrioventricular block; G25.81 Restless legs syndrome; K58.9 Irritable bowel syndrome, unspecified; Z79.01 Long term (current) use of anticoagulants; Z79.899 Other long term (current) drug therapy; Z85.07 Personal history of malignant neoplasm of pancreas; Z87.891 Personal history of nicotine dependence; Z82.49 Family history of ischemic heart disease and other diseases of the circulatory system
CPT/HCPCS: 93308; 33207; 33361; 36415; 71045; 71046; 80048; 80053; 81003; 82248; 83036; 83735; 83880; 85025; 85027; 85347; 85610; 85730; 86850; 86900; 86901; 86920; 87070; 93005; 93306; 93321; 93325; C1760; C1766; C1769; C1786; C1887; C1892; C1894; C1898; Q9967

== ENCOUNTER → 2024-07-30 09:08 | Outpatient (REF) | payer MEDICARE, BC, SELFPAY | LOC: RCS 09:08 | PROVIDERS: ATTENDING PHYSICIAN Internal Medicine Cardiovascular Disease; FAMILY PHYSICIAN Family Medicine | DX: I48.21 Permanent atrial fibrillation (principal); I35.0 Nonrheumatic aortic (valve) stenosis; I34.0 Nonrheumatic mitral (valve) insufficiency; Z95.3 Presence of xenogenic heart valve | CPT/HCPCS: 93306 ==

== ENCOUNTER 2024-08-22 09:38 | Outpatient (RCR) | payer MEDICARE, BC, SELFPAY | END 2024-08-22 23:59 | disposition home or self-care (01) | LOC: CRHB 09:38 | PROVIDERS: ATTENDING PHYSICIAN Internal Medicine Cardiovascular Disease | DX: Z95.4 Presence of other heart-valve replacement (principal) | CPT/HCPCS: G0422; G0423 ==

== ENCOUNTER 2024-09-22 10:44 | Outpatient (RCR) | payer MEDICARE, BC, SELFPAY | END 2024-09-22 23:59 | disposition home or self-care (01) | LOC: CRHB 10:44 | PROVIDERS: ATTENDING PHYSICIAN Internal Medicine Cardiovascular Disease; FAMILY PHYSICIAN Family Medicine | DX: Z95.4 Presence of other heart-valve replacement (principal) | CPT/HCPCS: G0422; G0423 ==

== ENCOUNTER → 2025-01-05 09:51 | Outpatient (REF) | payer MEDICARE, BC, SELFPAY | LOC: RCS 09:51 | PROVIDERS: ATTENDING PHYSICIAN Internal Medicine Cardiovascular Disease; FAMILY PHYSICIAN Family Medicine | DX: I48.21 Permanent atrial fibrillation (principal); Z95.2 Presence of prosthetic heart valve; I10 Essential (primary) hypertension; R00.1 Bradycardia, unspecified | CPT/HCPCS: 93306 ==